=== PATIENT | male | born 1955 | race Caucasian/White ===

== ENCOUNTER 2017-01-17 05:31 | Day surgery (SDC) | payer OTHER ==
[2017-01-16 10:11] VITALS: BMI 24.4
--- NOTE | 2017-01-17 05:32 | HP ---
Mr. Chaudhary presents for evaluation of low back pain and radicular L5 pains to bilateral lower extre mities, mostly to the right since March. This has been a recurrent problem for him over time. I n the setting of an MRI from [place] that reveals L4 disk compressing the traversing L5 nerve kevin ts. He only gets minimal relief with . He is ready for surgical intervention if possible. PAST MEDICAL HISTORY: 1. Cerebrovascular accident. 2. Seizures. 3. Subdural hematoma. 4. Hypertension. PHYSICAL EXAMINATION: NEUROLOGIC: Patient is alert and oriented x3. Gait is normal. No ataxia. EXTREMITIES: Lower extremity motor exam reveals full strength bilaterally in all muscle groups of t he lower extremities. Straight leg raise is normal. ASSESSMENT: Lumbar herniated disk with radiculopathy. PLAN: Discussed L4 diskectomy. Dr. Cornelius then met with the patient, reviewed imaging and ultimatel y advocated for an L4 diskectomy. He explained to the patient the risks, benefits, and alternatives to the procedure. The patient expressed understanding and would like to move forward with surgery as discussed. I do believe the patient is mentally competent and capable of making medical decision s for himself and we will move forward with surgery as planned.
[2017-01-17] MEDS ORDERED: Thrombin 5000 UNITS/5 ML VIAL ONE (06:27)
[2017-01-17] MEDS ORDERED: Bupivacaine HCl 0.5%/Epinephrine 1:200,000/PF 30 ml Vial ONE (06:27)
[2017-01-17] MEDS ORDERED: Fentanyl 100 MCG/2 ML VIAL ONE (06:43)
[2017-01-17] MEDS ORDERED: Midazolam HCl 2 mg/2 ml Vial ONE ×2 (06:43→06:48)
[2017-01-17] MEDS ORDERED: Promethazine HCl 25 MG/ML VIAL ONE (06:43)
--- NOTE | 2017-01-21 08:41 | EKG ---
Test Reason : PREOP Blood Pressure : / mmHG Vent. Rate : 061 BPM Atrial Rate : 061 BPM P-R Int : 174 ms QRS Dur : 096 ms QT Int : 406 ms P-R-T Axes : 032 -12 016 degrees QTc Int : 408 ms Normal sinus rhythm Normal ECG When compared with ECG of 02-FEB-2011 13:04, No significant change was found Confirmed by DR. Ta MEEK ([id number]) on 01/21/2017 8:40:52 AM Referred By: ZACKARY Confirmed By:DR. Ta MEEK
== END 2017-01-17 07:25 | disposition home or self-care (01) ==
LOC: SDC 05:31 → SDC/OP 07:25
PROVIDERS: ATTEND Neurological Surgery
DX: M54.16 Radiculopathy, lumbar region (principal); I10 Essential (primary) hypertension; Z53.8 Procedure and treatment not carried out for other reasons; Z79.82 Long term (current) use of aspirin; Z79.899 Other long term (current) drug therapy; Z86.69 Personal history of other diseases of the nervous system and sense organs; Z86.73 Personal history of transient ischemic attack (TIA), and cerebral infarction without residual deficits
CPT/HCPCS: 93005; 93010; J0670; J2250; J2550; J3010

== ENCOUNTER 2021-10-31 14:38 | Outpatient (CLI) | payer BC | END 2021-10-31 14:39 | disposition home or self-care (01) | LOC: RAD-FRANK 14:38 | PROVIDERS: ATTEND Nurse Practitioner Family | DX: M79.671 Pain in right foot (principal) ==

== ENCOUNTER 2021-11-22 09:12 | Outpatient (CLI) | payer BC | END 2021-11-22 09:13 | disposition home or self-care (01) | LOC: CTENTCT 09:12 | PROVIDERS: ATTEND Specialist | DX: J32.9 Chronic sinusitis, unspecified (principal) | CPT/HCPCS: 70486 ==